=== PATIENT | male | born 1955 | race Caucasian/White ===

== ENCOUNTER → 2019-10-25 09:50 | Outpatient (BNVA) | payer BC, SELFPAY | PROVIDERS: Family Provider Family Medicine; PCP Family Medicine; Visit Provider Internal Medicine Cardiovascular Disease | DX: E78.2 Mixed hyperlipidemia (principal); I25.10 Atherosclerotic heart disease of native coronary artery without angina pectoris; Z95.0 Presence of cardiac pacemaker; I10 Essential (primary) hypertension | CPT/HCPCS: 80061 ==

== ENCOUNTER → 2019-10-27 08:28 | Outpatient (BNVA) | payer BC, SELFPAY | PROVIDERS: Family Provider Family Medicine; PCP Family Medicine; Visit Provider Urology | DX: N99.89 Other postprocedural complications and disorders of genitourinary system (principal); R97.20 Elevated prostate specific antigen [PSA]; N40.0 Benign prostatic hyperplasia without lower urinary tract symptoms | CPT/HCPCS: 36415; 81001 ==

== ENCOUNTER 2019-12-21 08:12 | Outpatient (CLI) | payer BC, SELFPAY ==
--- NOTE | 2019-12-21 08:37 | XR_ITS ---
WS: [id number] LEFT KNEE: 2 VIEW(S) TECHNIQUE: AP and lateral. HISTORY: LEFT KNEE PAIN COMPARISON: None available. No fracture or dislocation. Moderate narrowing medial compartment. Mild narrowing of patellofemoral joint space. There are small osteophytes. No joint effusion. No soft tissue abnormality. XR/XR knee LT 1-2V [id number] IMPRESSION: Moderate medial compartment osteoarthritis.
== END 2019-12-21 08:13 | disposition home or self-care (01) ==
LOC: RADWPI 08:17
PROVIDERS: Family Provider Family Medicine; PCP Family Medicine; Visit Provider Nurse Practitioner Family
DX: M17.12 Unilateral primary osteoarthritis, left knee (principal); M23.92 Unspecified internal derangement of left knee
CPT/HCPCS: 73560

== ENCOUNTER → 2020-02-09 14:51 | Outpatient (BNVA) | payer BC, SELFPAY | PROVIDERS: Family Provider Family Medicine; PCP Family Medicine; Visit Provider Urology | DX: R97.20 Elevated prostate specific antigen [PSA] (principal); N40.0 Benign prostatic hyperplasia without lower urinary tract symptoms | CPT/HCPCS: 81001; 84153 ==

== ENCOUNTER → 2020-06-27 08:20 | Outpatient (BNVA) | payer MEDICARE, SELFPAY | PROVIDERS: Family Provider Family Medicine; PCP Family Medicine; Visit Provider Urology | DX: R97.20 Elevated prostate specific antigen [PSA] (principal) | CPT/HCPCS: 81001; 84153 ==

== ENCOUNTER → 2020-10-31 13:31 | Outpatient (BNVA) | payer MEDICARE, SELFPAY | PROVIDERS: Family Provider Family Medicine; PCP Family Medicine; Visit Provider Urology | DX: R97.20 Elevated prostate specific antigen [PSA] (principal) | CPT/HCPCS: 81003; 84153 ==

== ENCOUNTER 2021-04-03 06:00 | Outpatient (RCR) | payer MEDICARE, SELFPAY | END 2021-04-18 23:59 | disposition home or self-care (01) | LOC: MPT 06:00 | PROVIDERS: PCP Family Medicine; Referring Provider Student in an Organized Health Care Education/Training Program; Visit Provider Student in an Organized Health Care Education/Training Program | DX: M17.12 Unilateral primary osteoarthritis, left knee (principal) | CPT/HCPCS: 97110; 97140; 97161 ==

== ENCOUNTER 2021-04-19 06:00 | Outpatient (RCR) | payer MEDICARE, SELFPAY | END 2021-05-19 23:59 | disposition home or self-care (01) | LOC: MPT 06:00 | PROVIDERS: PCP Family Medicine; Referring Provider Student in an Organized Health Care Education/Training Program; Visit Provider Student in an Organized Health Care Education/Training Program | DX: M17.12 Unilateral primary osteoarthritis, left knee (principal) | CPT/HCPCS: 97110; 97140 ==

== ENCOUNTER → 2021-05-02 17:08 | Outpatient (BNVA) | payer MEDICARE, SELFPAY | PROVIDERS: PCP Family Medicine; Visit Provider Urology | DX: R97.20 Elevated prostate specific antigen [PSA] (principal); R31.0 Gross hematuria | CPT/HCPCS: 81003; 84153; 87086; 88112 ==

== ENCOUNTER 2021-05-20 06:00 | Outpatient (RCR) | payer MEDICARE, SELFPAY | END 2021-06-19 23:59 | disposition home or self-care (01) | LOC: MPT 06:00 | PROVIDERS: PCP Family Medicine; Referring Provider Student in an Organized Health Care Education/Training Program; Visit Provider Student in an Organized Health Care Education/Training Program | DX: M17.12 Unilateral primary osteoarthritis, left knee (principal) | CPT/HCPCS: 97110; 97140 ==

== ENCOUNTER 2021-05-30 07:21 | Outpatient (CLI) | payer MEDICARE, SELFPAY ==
[2021-05-30 08:17] LABS: Blood Urea Nitrogen 23 mg/dL (8-23); Glomerular Filtration Rate 55.4 mL/min (90-130)
--- NOTE | 2021-05-30 08:30 | CT_ITS ---
WS: [id number] CT ABDOMEN PELVIS TECHNIQUE: Noncontrast CT of the abdomen and contrast-enhanced CT of the abdomen and pelvis with dorcas nal and sagittal reformatted images. CLINICAL INFORMATION: GROSS HEMATURIA COMPARISON: None. DLP: 3956.[address] scans at [facility] use at least one of these dose optimization techniques: automat ed exposure control; mA and/or kV adjustment per patient size (includes targeted exams where dose is matched to clinical indication); or iterative reconstruction. FINDINGS: No hydronephrosis in either kidney. No obstructing renal or ureteral calculi. A few tiny nonobstructi ng calyceal tip calculi. Right renal cyst measuring 4.7 x 3.9 CM. Tiny left renal cyst. Bladder is de compressed with diffuse wall thickening. Marked enlargement of prostate with heterogeneous enhancemen t measuring 6.1 x 6.1 CM. Diffuse thickening of the seminal vesicles. Normal renal parenchymal enhanc ement with normal excretion. Mild diffuse fatty infiltration of the liver. Normal spleen. Normal GE junction. Fatty atrophy of the pancreas. Adrenal glands are normal. Normal gallbladder. Normal portal vein and splenic vein. Lung b ases are well aerated. Cardiomegaly. Aortic calcification. Normal caliber abdominal aorta. Normal sigmoid colon. No evidence of small or large bowel obstruction. Normal appendix in the right l ower quadrant. No abdominal or pelvic lymphadenopathy. No inguinal lymphadenopathy. Incidental fat-co ntaining hernia. CT/CT abdomen pelvis wo/w [id number] IMPRESSION: 1. Marked enlargement of the prostate with evidence of bladder outlet obstruct ion. Diffuse thickening of the seminal vesicles. Heterogeneous nodular prostate measures 6.0 x 6.0 CCM. Recommend correlation PSA. 2. No obstructing renal or ureteral calculi. Mild bilateral renal cortical at rophy. 3. Right renal cyst measuring 4.7 x 3.9 CM. 4. No abdominal or pelvic lymphadenopathy. No inguinal lymphadenopathy. 5. Mild diffuse fatty infiltration of the liver. 6. No other significant findings.
[2021-05-30] MEDS: iodixanol 320 mg/mL 100mL Btl IV (08:41)
== END 2021-05-30 07:22 | disposition home or self-care (01) ==
PROVIDERS: PCP Nurse Practitioner; Visit Provider Urology
DX: R31.0 Gross hematuria (principal); K76.0 Fatty (change of) liver, not elsewhere classified; Q61.01 Congenital single renal cyst; N40.0 Benign prostatic hyperplasia without lower urinary tract symptoms
CPT/HCPCS: 36415; 74178; 81003; 82565; 84520

== ENCOUNTER → 2021-07-02 11:29 | Outpatient (BNVA) | payer MEDICARE, SELFPAY | PROVIDERS: PCP Nurse Practitioner; Visit Provider Internal Medicine Cardiovascular Disease | DX: Z01.818 Encounter for other preprocedural examination (principal); I25.10 Atherosclerotic heart disease of native coronary artery without angina pectoris; E78.5 Hyperlipidemia, unspecified; E78.2 Mixed hyperlipidemia; Z45.010 Encounter for checking and testing of cardiac pacemaker pulse generator [battery]; Z20.822 Contact with and (suspected) exposure to COVID-19; Z79.899 Other long term (current) drug therapy | CPT/HCPCS: 80048; 80061; 85025; 85610; 86850; 86900; 87635 ==

== ENCOUNTER 2021-07-09 05:53 | Day surgery (SDC) | payer MEDICARE, SELFPAY ==
[2021-07-09] VITALS (7 sets, daily range): BP systolic 120–145; BP diastolic 75–94; PULSE 60–66; RESP 14–18; TEMP 36.5–37.1; O2SAT 92–97; BMI 33.5
--- NOTE | 2021-07-09 07:08 | W.PM.OPSUD ---
Surgery/Procedure H&P Update DATE OF PROCEDURE: July 09, 2021 DATE H&P PERFORMED: 07/02/21 H&P UPDATE INFORMATION: I have reviewed H&P completed within last 30 days, I have examined patient prior to procedure and No changes to prior documentation PREOP DIAGNOSIS: Pacemaker, elective replacement indication PRIMARY INDICATION FOR PROCEDURE: Same as above PLANNED PROCEDURE: Operation Date: 07/09/21 07:00 Proposed Procedures p Pacemaker Generator Change(Not Applicable) - Eloisa You MD PATIENT REASSESSED PRIOR TO SEDATION, WITH NO CHANGE NOTED: Yes PHYSICAL EXAM: alert, clear to auscultation bilaterally, regular rate & rhythm and operative site marked OTHER PERTINENT EXAM FINDINGS: Normal heart sounds. Breath sounds are heard bilaterally. No rales or rhonchi. No peripheral edema AIRWAY EVAL/ANESTHESIA PLAN: normal airway, see other exam findings, ASA II, Monitored Anesthesia, Local Anesthesia, Risks, benefits & alternatives of sedation and/or procedure discussed and Patient agrees to continue as planned
--- NOTE | 2021-07-09 08:13 | PM.OP ---
Operative Report Date of procedure: July 09, 2021 Pre-op Diagnosis: Pacemaker, elective replacement indication Procedure: PROCEDURE: PACEMAKER REVISION PREOPERATIVE DIAGNOSIS: Pacemaker elective replacement indication. POSTOPERATIVE DIAGNOSIS: Pacemaker elective replacement indication. ESTIMATED BLOOD LOSS: Around 5 milliliters. COMPLICATIONS: None. BRIEF HISTORY: The patient is 66-year-old white male/female who had a permanent pacemaker implantation for symptomatic bradycardia. The patient was found to have elective replacement indication, during routine office followup evaluation. For further management of patient's condition for the symptomatic bradycardia, the patient required a pacemaker revision. The procedure was explained to the patient and his in detail with the risks and benefits. The risks of bleeding, hematoma, vascular injury, infection and other concomitant complications were explained in detail, which the patient understood well and consented to proceed. PROCEDURES PERFORMED: 1. Explantation of the old pacemaker generator. 2. Implantation of the new generator. The patient brought to the Cardiac Bulb Grader. The left side of the neck and the subclavian area were cleaned and draped in a sterile fashion. 1% Xylocaine was used for local anesthetic agent. A 2 inch long incision was made just below the previous pacemaker scar. By sharp and blunt dissection, the pacemaker pocket was accessed. The old generator was delivered from the pocket. The generator was detached from the leads. The new Medtronic generator was attached to the lead. . The pacemaker pocket was copiously irrigated with vancomycin solution. Complete hemostasis was achieved. The leads were positioned behind the generator and the generator was placed inside an antibiotic sleeve . Sponge counts were confirmed. The pacemaker pocket was closed in layers. Skin was approximated using 4-0 Vicryl. EXPLANTED DEVICE: Pacemaker Generator: Brand: Unype. Model number: [id number]. Serial number: [id number]. Date of implant: 08/09/2009 IMPLANTED DEVICES: Ventricular Lead: Date of implantation: 08/09/2009 Model number:[id number] Serial number: [id number] Make: Medtronic. Atrial lead Date of Implantation:08/09/2009 Modelnumber:[id number] Serial number:[id number] Make :Medtronic Implanted Generator: Date of implantation : 07/09/2021 Brand: Amy XT DR LESLIE Robin Model number: [id number] Serial number: [id number] Make: Medtronic TYRX- antibiotic sleeve REF [facility] [address] LOT# [id number] Stimulation Threshold: The ventricular sensing was 10.0 millivolts. Lead impedance was 513 Ohms and the pacing threshold was 0.75 volts at 0.4 milliseconds. The atrial lead sensing was 3.6 mV with a lead impedance of 475 ohms and a pacing threshold of 0.5 V at 0.4 ms. The pacemaker was set for AAIR/DDDR mode with an upper rate of 130 and a lower rate of 60. A pressure dressing was applied over the pacemaker site. The patient was transferred back to medical floor in stable condition. Sponge counts were correct.
[2021-07-09] MEDS: sodium chloride 0.9% 1,000 ML 75 ML IV ×2 (09:00→20:04)
[2021-07-10 04:10] VITALS: BP 126/78; PULSE 62; RESP 16; TEMP 36.8; O2SAT 96
[2021-07-10] MEDS: multivitamin therapeutic Tablet 1 TAB PO (06:11)
[2021-07-10 08:00] VITALS: BP 134/72; PULSE 66; RESP 18; TEMP 37; O2SAT 92
[2021-07-10] MEDS: omega-3 fatty acids 1,000 mg Capsule 1000 MG PO (08:23)
[2021-07-10] MEDS: atorvastatin 40 mg Tablet 80 MG PO (08:23)
[2021-07-10] MEDS: ezetimibe 10 mg Tablet PO (08:23)
[2021-07-10] MEDS: lisinopril 20 mg Tablet 40 MG PO (08:23)
[2021-07-10] MEDS: amlodipine 5 mg Tablet PO (08:23)
[2021-07-10] MEDS: aspirin 325 mg Tablet PO (08:23)
--- NOTE | 2021-07-10 11:34 | PC.NURSE ---
Discharge Note Patient discharged to home via private vehicle accompanied by . Discharge instructions reviewed with patient and/or outside industrial sales representative. Mobile pharmacy medications and/or prescriptions provided. Belongings/home medications returned.
[2021-07-10 11:35] VITALS: BP 134/72; PULSE 66; RESP 18; TEMP 37; O2SAT 92
== END 2021-07-10 11:35 | disposition home or self-care (01) ==
LOC: CCL 06:53 → MEDSURG 08:53
PROVIDERS: PCP Nurse Practitioner; Visit Provider Internal Medicine Cardiovascular Disease
DX: Z45.010 Encounter for checking and testing of cardiac pacemaker pulse generator [battery] (principal); I25.10 Atherosclerotic heart disease of native coronary artery without angina pectoris; I10 Essential (primary) hypertension; E78.2 Mixed hyperlipidemia; M13.862 Other specified arthritis, left knee; Z82.49 Family history of ischemic heart disease and other diseases of the circulatory system
CPT/HCPCS: 33213; 36415; 97165; A4565; C1769; C1786; J0690; J2250; J3010; J7030; J7050

== ENCOUNTER 2021-10-09 07:20 | Outpatient (CLI) | payer MEDICARE, SELFPAY ==
[2021-10-09 07:26] VITALS: BMI 33.4
--- NOTE | 2021-10-09 07:26 | ECG_ITS ---
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 Interpretive Statements NAME OF STUDY: LEXISCAN SESTAMIBI STRESS TEST INDICATION: SOB PROCEDURE: At the baseline, the EKG revealed sinus rhythm with a poor R wave progression. Nonspecific T wave changes. The baseline blood pressure was 118/76 mm Hg with a heart rate of 61 beats/min. Lexiscan was infused over a period of 20 seconds. A total of 0.4 milligrams of Lexiscan was infused. The stress phase was continued for a total of 5 minutes. Heart rate at the end of the stress phase was 76 with a blood pressure 121/75. The EKG at the peak infusion revealed no significant changes. Sestamibi was injected 20 seconds after the Lexiscan infusion. Blood pressure at the end of the recovery phase was 116/71 with a heart rate of 69 per minute. CONCLUSION: 1. No significant EKG changes with the LexiScan infusion 2. No LexiScan induced chest pain or cardiac arrhythmia 3. Normal blood pressure and heart rate response 4. Sestamibi/sestamibi perfusion scan pending; see separate report. Electronically Signed On 10-14-2021 19:23:24 SUPPRESSION CREW LEADER by Eloisa You M.D. [id number]
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
[2021-10-09] MEDS: regadenoson 0.4 Mg/5 ml Syringe IVP (09:45)
[2021-10-09 09:50] VITALS: BP 116/71; PULSE 68
== END 2021-10-09 07:21 | disposition home or self-care (01) ==
LOC: CDL 07:23
PROVIDERS: PCP Nurse Practitioner; Visit Provider Internal Medicine Cardiovascular Disease
DX: R06.02 Shortness of breath (principal)
CPT/HCPCS: 78452; 93017; A9500; J2785

== ENCOUNTER → 2021-11-07 09:45 | Outpatient (BNVA) | payer MEDICARE, SELFPAY | PROVIDERS: PCP Nurse Practitioner; Visit Provider Internal Medicine Cardiovascular Disease | DX: I25.118 Atherosclerotic heart disease of native coronary artery with other forms of angina pectoris (principal); Z20.822 Contact with and (suspected) exposure to COVID-19 | CPT/HCPCS: 80048; 85025; 85610; 87635 ==

== ENCOUNTER 2021-11-12 06:02 | Outpatient (CLI) | payer MEDICARE, SELFPAY ==
[2021-11-12] VITALS (24 sets, daily range): BP systolic 100–171; BP diastolic 66–104; PULSE 60–85; RESP 12–22; TEMP 36.5; O2SAT 92–97; BMI 33.7
--- NOTE | 2021-11-12 | XACV_ITS ---
Gender: Male : 1955 Exam Priority: Routine Diagnostic Cath Status: Elective Diagnostic Findings * Coronary angiography shows right dominance. * The left main is a medium caliber short vessel with no significant stenotic lesions. * Moderate to heavy Diffuse calcification was noted in the proximal and mid LAD. Mild diffuse calcification was noted in the proximal circumflex artery. * T * he left artery descending artery is a medium caliber vessel which wrap around the LV apex minimally. The mid LAD was found to have a long stented segment which was found to have mild diffuse in-stent narrowing. The septal perforators coming out of the stented area were found to have moderate ostial narrowing. The distal LAD was found to have a long segment of 20 to 30% narrowing proximally. No other significant stenotic lesions were noted. * The left circumflex artery is a medium caliber vessel which was found to have mild diffuse intimal irregularities proximally. It gives off a relatively large first obtuse marginal branch. It was found to have a high-grade segmental stenosis of around 90% proximally. Right after the origin of the first obtuse marginal artery, the circumflex proper in the AV groove was found to have an ostial narrowing of around 70%. Bwpy-fr-kwsbs collaterals were found to be filling up the PDA and PLV branches of the right coronary artery. * The right coronary artery is a medium caliber vessel which was found to have 50 to 70% tubular narrowing right after the sinus juliano branch proximally. The PDA branch was found to have high-grade around 95% lesion proximally at the bifurcation. Just before the stented area of the mid PDA, there was another 70 to 80% narrowing. Distal to the stented segment, the artery appeared to be subtotally occluded. The PLV branch of the right coronary artery appears to be totally occluded near the ostium. Interventional Findings * Reason for intervention PCI: Abnormal stress test inferior inferolateral wall ischemia. * RCA has multiple tandem stenosis with diffuse disease, there is a iabn-fc-iozmq collaterals filling the distal RCA * , * therefore we decided to proceed with intervention of proximal obtuse marginal 1. Excellent angiographic result with YAYA-3 flow was confirmed * . * . Conclusions 1. This is a 66-year-old white male with a history of coronary disease and previous PCI, presenting with increasing episodes of chest pain/fatigue/dyspnea on exertion. He had a myocardial perfusion imaging which revealed moderate area of fixed and reversible defects in the distribution of the right coronary artery and circumflex artery. In view of his ongoing symptoms, in order to further evaluate his coronary status, a cardiac catheterization was recommended. Patient underwent left heart catheterization with left and right coronary angiogram today. The findings are as follows. 2. No significant disease in the left main. Patent stented segment of the mid LAD. Mild diffuse disease in the rest of the vessels. Moderate diffuse calcification was noted in the proximal and mid LAD. High-grade lesion of the first obtuse marginal branch of the circumflex artery. Moderately severe disease in the ostium of the mid circumflex. Moderate diffuse disease in the proximal right coronary artery. High-grade multiple lesions in the PDA, including its ostium. There was total occlusion of the PLV branch of the right coronary artery with good hphk-jh-zzoig collaterals. Grade 2 collaterals were also noted filling up the distal PDA from the left coronary injection. LVEDP of 30 mmHg. LV gram was not performed because of the concern of the dye overload. 3. I have reviewed and discussed the cardiac catheterization data habits of Dr. Rainey. It was thought to be appropriate to consider PCI of the circumflex and the RCA lesions. Dr. Rainey took over further management of this patient at this point. Recommendations * Continue current medical management and risk factor modification. Interventional RX Recommendation: PCI w/o planned CABG Diagnostic RX Recommendation: PCI w/o planned CABG LV EDP: 30 mmHg Left Ventriculography Findings: * The LV gram was not performed because of the concern of the dye overload. The LVEDP was 30 mmHg. I, the attending physician, have reviewed and verified all procedure medications. Yes, all medications given per verbal order Report Signatures Interventional Workflow Finalized by Keerthi Rainey MD on 11/27/2021 07:20 PM Diagnostic Workflow Finalized by Dr Eloisa You MD [facility] on 11/12/2021 11:05 PM
[2021-11-12] MEDS: diphenhydrAMINE 50 mg Capsule PO (06:15)
--- NOTE | 2021-11-12 07:15 | W.PM.OPSUD ---
Surgery/Procedure H&P Update DATE OF PROCEDURE: November 12, 2021 DATE H&P PERFORMED: 10/16/21 H&P UPDATE INFORMATION: I have reviewed H&P completed within last 30 days, I have examined patient prior to procedure and No changes to prior documentation PREOP DIAGNOSIS: ASHD PRIMARY INDICATION FOR PROCEDURE: cp/ Abnormal stress test PLANNED PROCEDURE: Operation Date: 11/12/21 07:00 Proposed Procedures p Cardiac Catheterization(Left) - Eloisa You MD PATIENT REASSESSED PRIOR TO SEDATION, WITH NO CHANGE NOTED: Yes PHYSICAL EXAM: alert, oriented x 3, clear to auscultation bilaterally and regular rate & rhythm AIRWAY EVAL/ANESTHESIA PLAN: normal airway, see other exam findings, ASA III, Monitored Anesthesia, Local Anesthesia, Risks, benefits & alternatives of sedation and/or procedure discussed and Patient agrees to continue as planned
[2021-11-12] MEDS: clopidogrel 300 mg Tablet 600 MG PO (09:45)
--- NOTE | 2021-11-12 09:54 | SUR.PHASEII ---
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 TR band in place. Small hematoma noted proximal to the band-expressed via massage and then 2nd band applied. Radial waveform noted via o2 sensor. Dr Rainey made aware of the hematoma and ther is no change in plan of care at this point.
--- NOTE | 2021-11-12 09:59 | SUR.PHASEII ---
Post OP fluid rate is set per MD at 150 ml/hr until discharge today. Noted and infusing as ordered.
--- NOTE | 2021-11-12 11:45 | SUR.PHASEII ---
Aggrastat D/C PER ORDERS.
--- NOTE | 2021-11-12 11:51 | SUR.PHASEII ---
TR BAND CHECK 2ND BAND REMOVED TO CHECK STATUS OF SMALL HEMATOMA. Site noted to be taught and swollen from band application. Gentle massage to the radial site proxima to the access point done. Area massaged until taughtness gone. Site is now soft to the touch. No visible sign of active bleeding present now. 2nd Band reapplied and Dr rasheed notified of the change. He came to assess the site and gave no new orders at this time.
--- NOTE | 2021-11-12 12:45 | SUR.PHASEII ---
2nd band removed incrementally at 1215. at 1245 the primary tr band deflation began. No change to right arm and hematoma. Will continue to monitor.
--- NOTE | 2021-11-12 14:03 | SUR.PHASEII ---
TR BAND deflated and removed. Clear bioclusive applied. Dr rasheed aware. Will come assess in a few moments.
== END 2021-11-12 15:10 | disposition home or self-care (01) ==
PROVIDERS: Internal Medicine Cardiovascular Disease; PCP Nurse Practitioner; Visit Provider Internal Medicine Cardiovascular Disease
DX: I25.118 Atherosclerotic heart disease of native coronary artery with other forms of angina pectoris (principal); R94.39 Abnormal result of other cardiovascular function study; Z95.0 Presence of cardiac pacemaker; I10 Essential (primary) hypertension; E78.2 Mixed hyperlipidemia; M17.12 Unilateral primary osteoarthritis, left knee; Z79.82 Long term (current) use of aspirin; Z82.49 Family history of ischemic heart disease and other diseases of the circulatory system; Z83.3 Family history of diabetes mellitus
CPT/HCPCS: 36415; 85347; 93452; 93458; C1725; C1769; C1874; C1887; C1894; C9600; J1644; J2250; J3010; J3490; J7030; Q0163; Q9967

== ENCOUNTER 2021-11-29 08:59 | Outpatient (CLI) | payer MEDICARE, SELFPAY ==
--- NOTE | 2021-11-29 09:03 | XR_ITS ---
WS: [id number] XR KUB [id number] REASON FOR EXAM: stones FINDINGS: 3 mm calculus overlying the lower pole of the left kidney. No other urinary tract calculi are identified. No other significant abdominal or pelvic abnormality. XR/XR KUB [id number] IMPRESSION: Left renal calculus.
== END 2021-11-29 09:00 | disposition home or self-care (01) ==
LOC: RAD 09:03
PROVIDERS: PCP Nurse Practitioner; Visit Provider Urology
DX: N20.0 Calculus of kidney (principal); I25.118 Atherosclerotic heart disease of native coronary artery with other forms of angina pectoris
CPT/HCPCS: 74018; 80048; 81003; 84153

== ENCOUNTER → 2022-01-15 10:33 | Outpatient (BNVA) | payer MEDICARE, SELFPAY | PROVIDERS: PCP Nurse Practitioner; Visit Provider Internal Medicine Cardiovascular Disease | DX: I25.118 Atherosclerotic heart disease of native coronary artery with other forms of angina pectoris (principal); E78.2 Mixed hyperlipidemia; Z95.0 Presence of cardiac pacemaker | CPT/HCPCS: 99214 ==

== ENCOUNTER 2022-01-22 11:37 | Outpatient (CLI) | payer MEDICARE, SELFPAY ==
[2022-01-22 13:08] LABS: Cholesterol 132 mg/dL (0-200); HDL Cholesterol 44 mg/dL (60-100); LDL Cholesterol Calculated 59 mg/dL (50-129); LDL HDL Ratio 1.34 RATIO (0.00-3.22); Triglycerides 146 mg/dL (0-150)
== END 2022-01-22 11:38 | disposition home or self-care (01) ==
PROVIDERS: PCP Nurse Practitioner; Visit Provider Internal Medicine Cardiovascular Disease
DX: E78.5 Hyperlipidemia, unspecified (principal)
CPT/HCPCS: 80061

== ENCOUNTER 2022-04-11 06:00 | Outpatient (RCR) | payer MEDICARE, SELFPAY | END 2022-04-18 23:59 | disposition home or self-care (01) | LOC: MPT 06:00 | PROVIDERS: PCP Nurse Practitioner; Referring Provider Student in an Organized Health Care Education/Training Program; Visit Provider Student in an Organized Health Care Education/Training Program | DX: M17.12 Unilateral primary osteoarthritis, left knee (principal) | CPT/HCPCS: 97110; 97140; 97161 ==

== ENCOUNTER 2022-04-19 06:00 | Outpatient (RCR) | payer MEDICARE, SELFPAY | END 2022-05-19 23:59 | disposition home or self-care (01) | LOC: MPT 06:00 | PROVIDERS: PCP Nurse Practitioner; Referring Provider Student in an Organized Health Care Education/Training Program; Visit Provider Student in an Organized Health Care Education/Training Program | DX: Z47.1 Aftercare following joint replacement surgery (principal); Z96.652 Presence of left artificial knee joint | CPT/HCPCS: 97110; 97140 ==

== ENCOUNTER 2022-05-20 06:00 | Outpatient (RCR) | payer MEDICARE, SELFPAY | END 2022-06-19 23:59 | disposition home or self-care (01) | LOC: MPT 06:00 | PROVIDERS: PCP Nurse Practitioner; Visit Provider Student in an Organized Health Care Education/Training Program | DX: M17.12 Unilateral primary osteoarthritis, left knee (principal) | CPT/HCPCS: 97110; 97116; 97140 ==

== ENCOUNTER → 2022-06-04 09:56 | Outpatient (BNVA) | payer MEDICARE, SELFPAY | PROVIDERS: PCP Nurse Practitioner; Visit Provider Urology | DX: R97.20 Elevated prostate specific antigen [PSA] (principal); N20.0 Calculus of kidney; R31.0 Gross hematuria | CPT/HCPCS: 36415; 81003; 84153; 99213 ==

== ENCOUNTER 2022-06-20 06:00 | Outpatient (RCR) | payer MEDICARE, SELFPAY | END 2022-07-19 23:59 | disposition home or self-care (01) | LOC: MPT 06:00 | PROVIDERS: PCP Nurse Practitioner; Visit Provider Student in an Organized Health Care Education/Training Program | DX: Z47.89 Encounter for other orthopedic aftercare (principal); M25.562 Pain in left knee | CPT/HCPCS: 97110 ==

== ENCOUNTER → 2022-07-16 10:25 | Outpatient (BNVA) | payer MEDICARE, SELFPAY | PROVIDERS: PCP Nurse Practitioner; Visit Provider Internal Medicine Cardiovascular Disease | DX: I25.10 Atherosclerotic heart disease of native coronary artery without angina pectoris (principal); Z95.0 Presence of cardiac pacemaker; I10 Essential (primary) hypertension; E78.2 Mixed hyperlipidemia | CPT/HCPCS: 99214 ==

== ENCOUNTER 2022-07-31 01:31 | Emergency (ER) | payer MEDICARE, SELFPAY ==
--- NOTE | 2022-07-31 01:34 | CTR_ITS ---
PROCEDURE INFORMATION: Exam: CT Abdomen And Pelvis Without Contrast Exam date and time: 07/31/2022 2:06 AM Age: 67 years old Clinical indication: Abdominal pain; Right; Prior surgery; Surgery type: Pacemaker; Patient HX: C/O RT flank pain with dysuria. TECHNIQUE: Imaging protocol: Computed tomography of the abdomen and pelvis without contrast. Radiation optimization: All CT scans at this facility use at least one of these dose optimization techniques: automated exposure control; mA and/or kV adjustment per patient size (includes targeted exams where dose is matched to clinical indication); or iterative reconstruction. COMPARISON: CT abdomen pelvis wo/w [id number] 05/30/2021 8:36 AM RADIATION DOSE METRICS: Total DLP (mGy-cm): 858.13 FINDINGS: Lungs: The visualized portions of the lung bases are normal. The heart size is normal. Pacemaker leads are seen in the right side of the heart. Mild coronary arterial atherosclerotic vascular calcifications. Liver: Appears unremarkable on the non-contrast CT. Gallbladder and bile ducts: No calcified stones. No ductal dilation. Pancreas: Appears unremarkable on the non-contrast CT. No ductal dilation. Spleen: Appears unremarkable on the non-contrast CT. No splenomegaly. Adrenal glands: Normal. No mass. Kidneys and ureters: Right kidney mid zone anterior simple 4.9 x 3.6 cm cyst is seen. Left kidney lower pole 4 x 4 mm calculus is seen. No left hydronephrosis, ureterectasis or ureteral calculi. Mild right hydronephrosis and ureterectasis with a right ureterovesicular junction 2 x 3 mm calculus (series 3, image 192 and series 5, image 101) at the level of the hip joints. Stomach and bowel: The noncontrast opacified stomach appears unremarkable. The noncontrast opacified small bowel loops appear unremarkable. The noncontrast opacified colonic loops show minimal distal descending and mild sigmoid colonic diverticulosis, without CT evidence of diverticulitis. The lack of orally administered contrast material limits assessment. Appendix: No CT evidence of appendicitis. Intraperitoneal space: No free air. No significant fluid collection. Vasculature: No abdominal aortic aneurysm. Mild atherosclerotic vascular calcifications. Lymph nodes: No enlarged lymph nodes. Urinary bladder: The bladder is not well distended with relative mild bladder wall prominence/thickening. Similar findings were seen on the prior CT. If there is clinical concern for cystitis, recommend correlation with urinalysis findings. Reproductive: Increased moderate to severely enlarged prostate is seen. Mildly prominent seminal vesicles are seen. Recommend correlation with clinical exam findings and PSA level assessment. Bones/joints: No acute osseous abnormalities noted. Severe degenerative disc disease changes with vacuum phenomenon are seen at the L3-L4 and L5-S1 levels. Soft tissues: Small umbilical hernia is seen, containing peritoneal fat. Tiny left inguinal hernia is seen, containing peritoneal fat. CT/CT kidney stone [id number] IMPRESSION: 1. Mild right hydronephrosis and ureterectasis with a right ureterovesicular junction 2 x 3 mm calculus (series 3, image 192 and series 5, image 101) at the level of the hip joints. 2. Left kidney lower pole 4 x 4 mm calculus. No left hydronephrosis or ureterectasis. 3. Increased moderate to severely enlarged prostate. Recommend correlation with clinical exam findings and PSA level assessment. COMMENTS: Consistent with the [place] [employer]'s Incidental Findings Committee white paper (J Am Zoë Radiol 2018): Any incidental renal lesion less than 1 cm or classified as too small to characterize, or any incidental cystic renal lesion characterized as simple-appearing, is likely benign. No follow-up imaging is recommended for these lesions per consensus recommendations based on imaging criteria.
[2022-07-31 01:48] VITALS: BP 158/87; PULSE 68; RESP 20; TEMP 36.7; O2SAT 97; BMI 33.4
--- NOTE | 2022-07-31 02:00 | W.ED.MALEGU ---
HPI - Male Genitourinary General: Chief complaint: Urogenital-Male Stated complaint: possible kidney stone Time Seen by Provider: 07/31/22 01:55 History of Present Illness: 67-year-old male patient comes in today with complaints of right flank pain radiating into the groin. Patient has a history of renal stones. Patient reports symptoms started this evening with pain and nausea. Patient has a history of coronary artery disease, elevated PSA, BPH, and mixed hyperlipidemia. Patient appears nontoxic. Patient appears in mild to moderate pain. Associated symptoms: Reports nausea Review of Systems General: Reports: 10 or more systems reviewed and unremarkable except in HPI and below Card: Denies: chest pain Resp: Denies: dyspnea GI: Reports: nausea : Reports: flank pain PFSH ED PFSH: Medical History Artificial cardiac pacemaker Bradycardia Coronary artery disease The most recent cardiac catheterization was in 2008. He was found to have a patent stent in the LAD with minimal in-stent stenosis. The stent in the PDA also was found to be patent. Moderate disease is noted in the bifurcation of the distal RCA and around the origin of the first obtuse marginal artery. The LV ejection fraction was 60%. The most recent myocardial bridge imaging was in 2011 Elevated PSA Chronically elevated PSA with negative biopsy 2018 Range 4-10, benign feeling NATE Enlarged prostate History of skin cancer of unknown type Hypertension Lower urinary tract symptoms (LUTS) Mixed hyperlipidemia Surgical History History of knee replacement, total LEFT Status post coronary artery stent placement Status post placement of cardiac pacemaker Status post vasectomy Family History Father , AT AGE 89-HEART FAILURE CAD (coronary artery disease) Mother Heart failure Family/Other Diabetes Cancer Lung disease Stroke Other Hypertension Denies family history of Clotting disorder Dementia Chronic kidney disease (CKD) Suicide Anesthesia complication Bleeding disorder Social History Smoking and tobacco status: never smoked Alcohol intake: never Marital status: Current occupational status: retired History of recent travel: No Physical Exam Const: COMMON NORMALS: alert HENMT: COMMON NORMALS: normocephalic HEAD & SCALP: normocephalic Neck/C-Spine: COMMON NORMALS: full ROM Resp: COMMON NORMALS: normal respiratory effort and clear to auscultation bilaterally AUSCULTATION: clear to auscultation bilaterally Cardio: COMMON NORMALS: regular rate and regular rhythm RATE: regular rate RHYTHM: regular rhythm GI: COMMON NORMALS: Soft to palpation PALPATION: Yes Soft to palpation : BLADDER/KIDNEY EXAM: Yes CVA tenderness on the right Back/Pelvis: GENERAL BACK: Yes CVA tenderness Extremity: COMMON NORMALS: no pedal edema Neuro: SENSORIUM/ORIENTATION: Yes alert Skin: COMMON NORMALS: turgor normal GENERAL SKIN EXAM: turgor normal Course Vital Signs: Vital signs: Vital Signs Temperature 98.0 F 07/31/22 01:48 Pulse Rate 60 07/31/22 03:42 Respiratory Rate 16 07/31/22 03:42 Blood Pressure 118/81 07/31/22 03:42 Pulse Oximetry 95 07/31/22 03:42 Oxygen Delivery Me thod 07/31/22 01:48 [facility] - Male Medical Decision Making 67-year-old male patient comes in today for complaints of right flank pain. Patient reports has had pain to his back on and off for about a month now. Tonight he started having significant flank pain radiating into his groin he believes he may be passing a stone. On exam patient has some right CVA tenderness. Abdomen is soft with some right lower quadrant abdominal tenderness. Vital signs are normal except for some elevation in blood pressure. Differential diagnosis includes but not limited to renal calculi, constipation, appendicitis, musculoskeletal back pain. CBC had a white count of 10,000, urinalysis was unremarkable, CT scan did note a 4 to 5 mm stone at the UVJ on the right side. Reviewed exam with patient with recommendations for treatment follow-up with urologist. Patient was given 1 dose of hydromorphone for pain and 4 mg of Zofran for nausea. Patient was written prescription for hydrocodone, ondansetron, and tamsulosin and knows to follow-up with urology. Case management was requested to assist with follow-up appointment. Lab Data : 07/31/22 02:03 07/31/22 02:03 Radiology Impressions Abdomen/Pelvis CT 07/31/22 01:34 IMPRESSION: 1. Mild right hydronephrosis and ureterectasis with a right ureterovesicular junction 2 x 3 mm calculus (series 3, image 192 and series 5, image 101) at the level of the hip joints. 2. Left kidney lower pole 4 x 4 mm calculus. No left hydronephrosis or ureterectasis. 3. Increased moderate to severely enlarged prostate. Recommend correlation with clinical exam findings and PSA level assessment. COMMENTS: Consistent with the [employer]'s Incidental Findings Committee white paper (J Am Zoë Radiol 2018): Any incidental renal lesion less than 1 cm or classified as too small to characterize, or any incidental cystic renal lesion characterized as simple-appearing, is likely benign. No follow-up imaging is recommended for these lesions per consensus recommendations based on imaging criteria. Laboratory Results WBC 10.2 10^3/uL (4.0-10.0) H 07/31/22 02:03 RBC 4.66 10^6/uL (4.1-5.3) 07/31/22 02:03 Hgb 13.8 g/dL (11.7-16.6) 07/31/22 02:03 Hct 40.8 % (42.0-52.0) L 07/31/22 02:03 MCV 87.6 fl (80-94) 07/31/22 02:03 MCH 29.6 pg (28.0-34.0) 07/31/22 02:03 MCHC 33.8 g/dL (30.0-36.0) 07/31/22 02:03 RDW 13.3 % (12.1-15.1) 07/31/22 02:03 Plt Count 249 10^3/cmm (130-400) 07/31/22 02:03 MPV 9.8 fL (7.4-10.4) 07/31/22 02:03 Neut % (Auto) 64.3 % 07/31/22 02:03 Lymph % (Auto) 24.8 % 07/31/22 02:03 [place] % (Auto) 7.6 % 07/31/22 02:03 Eos % (Auto) 2.2 % 07/31/22 02:03 Baso % (Auto) 0.6 % 07/31/22 02:03 Neut # (Auto) 6.54 10^3/uL (1.8-7.7) 07/31/22 02:03 Lymph # (Auto) 2.5 10^3/uL (0.8-4.8) 07/31/22 02:03 [place] # (Auto) 0.8 10^3/uL (0.2-0.9) 07/31/22 02:03 Eos # (Auto) 0.2 10^3/uL (0.0-0.8) 07/31/22 02:03 Baso # (Auto) 0.1 10^3/uL (0.0-0.1) 07/31/22 02:03 Nucleated RBC % (auto) 0 % 07/31/22 02:03 Nucleated RBCs # 0.0 /100WBC 07/31/22 02:03 Sodium 139 mmol/L (136-145) 07/31/22 02:03 Potassium 3.6 mmol/L (3.5-5.1) 07/31/22 02:03 Chloride 104 mmol/L (98-107) 07/31/22 02:03 Carbon Dioxide 19 mmol/L (22-29) L 07/31/22 02:03 Anion Gap 19.6 (5-19) H 07/31/22 02:03 BUN 31 mg/dL (8-23) H 07/31/22 02:03 Creatinine 1.4 mg/dL (0.7-1.2) H 07/31/22 02:03 GFR Calculation 50.5 mL/min (90-130) L 07/31/22 02:03 Glucose 152 mg/dL (65-115) H 07/31/22 02:03 Calculated Osmolality 298 mOsm/kg (285-295) H 07/31/22 02:03 Calcium 9.2 mg/dL (8.5-10.5) 07/31/22 02:03 Total Bilirubin 0.4 mg/dL (0.15-1.2) 07/31/22 02:03 AST 20 U/L (0-40) 07/31/22 02:03 ALT 22 U/L (0-41) 07/31/22 02:03 Alkaline Phosphatase 88 U/L (40-130) 07/31/22 02:03 Total Protein 7.2 g/dL (6.6-8.7) 07/31/22 02:03 Albumin 4.2 g/dL (3.5-5.2) 07/31/22 02:03 Globulin 3.0 g/dL (1.3-4.6) 07/31/22 02:03 Lipase 42 U/L (13-60) 07/31/22 02:03 Urine Color Yellow (Yellow) 07/31/22 02:18 Urine Appearance Clear (CLEAR) 07/31/22 02:18 Urine pH 5 (5-7) 07/31/22 02:18 Ur Specific [place] 1.025 (1.005-1.030) 07/31/22 02:18 Urine Protein Neg (Negative) 07/31/22 02:18 Urine Glucose (UA) Norm (Normal) 07/31/22 02:18 Urine Ketones Negative (Negative) 07/31/22 02:18 Urine Blood Neg (Negative) 07/31/22 02:18 Urine Nitrate Negative (Negative) 07/31/22 02:18 Urine Bilirubin Neg (Negative) 07/31/22 02:18 Urine Urobilinogen Norm mg/dL (Negative) 07/31/22 02:18 Ur Leukocyte Esterase Negative (Negative) 07/31/22 02:18 Discharge Plan Discharge Patient Disposition: Home Clinical Impression: Calculus of distal right ureter Condition: Stable Prescriptions: New tamsulosin 0.4 mg capsule 0.4 mg PO DAILY Qty: 14 0RF hydrocodone-acetaminophen 5-325 mg tablet 1 tab PO Q6H PRN (Reason: pain (scale score 7-10)) Qty: 14 0RF ondansetron 4 mg tablet,disintegrating 4 mg PO Q8H PRN (Reason: nausea and vomiting) Qty: 10 0RF No Action omega-3 acid ethyl esters 1 gram capsule 1 cap PO DAILY multivitamin Tablet 1 tab PO QAM aspirin 325 mg tablet 81 mg PO DAILY cetirizine [Zyrtec] 10 mg tablet 10 mg PO DAILY PRN (Reason: Allergy Symptoms) amlodipine 5 mg tablet 5 mg PO DAILY 90 Days Qty: 90 3RF lisinopril 40 mg tablet 40 mg PO DAILY Qty: 90 3RF ezetimibe 10 mg tablet 10 mg PO DAILY Qty: 90 3RF atorvastatin [Lipitor] 80 mg tablet 80 mg PO DAILY Qty: 90 3RF clopidogrel 75 mg tablet 75 mg PO DAILY Qty: 90 4RF Discharge Orders: Discharge ED (Routine); Ordered 07/31/22 Ordered By: Martir Toussaint Referrals: Zee Gregorio DIAMOND POWDER MIXER [Primary Care Provider] - Discharge Diet: Usual diet Patient Instructions: Kidney Stones (ED), Opioid Safety Activity Restrictions/Additional Instructions: Home and rest. Take medications as directed. He will use hydrocodone as needed for pain. Use ondansetron as needed for nausea and vomiting. Take tamsulosin daily to help relax the ureter so the stone will pass easily. Continue with routine medications. Case management will assist you with following up with Dr. Ibanez. Return to the ER for uncontrolled pain, inability to hold fluids down, or high fever. Coding Level of Care Code ED Supervisor Audit Clerks for Chg Fwd Exam Comprehensive
[2022-07-31 02:04] VITALS: RESP 18; O2SAT 98
[2022-07-31] MEDS: morphine 4 mg/mL SDV 1 mL IVP (02:04)
[2022-07-31] MEDS: ondansetron 2 mg/ML SDV 2 mL 4 MG IVP (02:04)
[2022-07-31 02:20] LABS: Basophils # 0.1 10^3/uL (0.0-0.1); Basophils % 0.6 %; Eosinophils # 0.2 10^3/uL (0.0-0.8); Eosinophils % 2.2 %; Hematocrit 40.8 % (42.0-52.0); Hemoglobin 13.8 g/dL (11.7-16.6); Lymphocytes # 2.5 10^3/uL (0.8-4.8); Lymphocytes % 24.8 %; Mean Corpuscular HGB Conc 33.8 g/dL (30.0-36.0); Mean Corpuscular Hemoglobin 29.6 pg (28.0-34.0); Mean Corpuscular Volume 87.6 fl (80-94); Mean Platelet Volume 9.8 fL (7.4-10.4); Monocytes # 0.8 10^3/uL (0.2-0.9); Monocytes % 7.6 %; Neutrophils # 6.54 10^3/uL (1.8-7.7); Neutrophils % 64.3 %; Nucleated Red Blood Cells % 0 %; Platelet Count 249 10^3/cmm (130-400); Red Blood Count 4.66 10^6/uL (4.1-5.3); Red Cell Distribution Width 13.3 % (12.1-15.1); White Blood Count 10.2 10^3/uL (4.0-10.0)
[2022-07-31 02:32] LABS: Add Urine Microscopic? NO; Charge for UA Resulting for Rev
[2022-07-31 02:36] VITALS: RESP 18
[2022-07-31] MEDS: HYDROmorphone 1 mg/mL INJ 1 mL IVP (02:36)
[2022-07-31 02:37] LABS: Bilirubin Urine Neg (Negative); Blood Urine Neg (Negative); Glucose Urine UA Norm (Normal); Ketones Urine Negative (Negative); Leukocyte Esterase Urine Negative (Negative); Nitrate Urine Negative (Negative); Protein Urine Neg (Negative); Specific Gravity, Urine 1.025 (1.005-1.030); Urine Appearance Clear (CLEAR); Urine Color Yellow (Yellow); Urobilinogen Urine Norm (Negative); pH Urine 5 (5-7)
[2022-07-31 02:41] LABS: Alanine Aminotransferase 22 U/L (0-41); Albumin Level 4.2 g/dL (3.5-5.2); Alkaline Phosphatase 88 U/L (40-130); Anion Gap 19.6 (5-19); Aspartate Amino Transferase 20 U/L (0-40); Blood Urea Nitrogen 31 mg/dL (8-23); Calcium 9.2 mg/dL (8.5-10.5); Carbon Dioxide 19 mmol/L (22-29); Chloride 104 mmol/L (98-107); Glomerular Filtration Rate 50.5 mL/min (90-130); Glucose 152 mg/dL (65-115); Lipase 42 U/L (13-60); Osmolality Calculated 298 mOsm/kg (285-295); Potassium 3.6 mmol/L (3.5-5.1); Sodium 139 mmol/L (136-145); Total Bilirubin 0.4 mg/dL (0.15-1.2); Total Protein 7.2 g/dL (6.6-8.7)
[2022-07-31 02:55] VITALS: BP 118/74; PULSE 66; RESP 16; O2SAT 97
[2022-07-31 03:42] VITALS: BP 118/81; PULSE 60; RESP 16; O2SAT 95
--- NOTE | 2022-07-31 15:05 | DCPLANNER ---
Addendum entered by Giselle Estrada 08/08/22 11:53: Patient had a follow up appointment scheduled for 08.06.[address] mcgee at urology - patient did attend appointment. Original Note: diabetes manager had message to schedule a follow up appointment for patient with urology. diabetes manager sent patients information to the front office staff at urology. Patients information will be printed and reviewed. Clinic will call patient with appointment information.
== END 2022-07-31 03:43 | disposition home or self-care (01) ==
PROVIDERS: Emergency Provider Nurse Practitioner Family; PCP Nurse Practitioner
DX: N20.1 Calculus of ureter (principal); Z87.442 Personal history of urinary calculi; Z79.02 Long term (current) use of antithrombotics/antiplatelets; Z79.82 Long term (current) use of aspirin; Z95.0 Presence of cardiac pacemaker; I25.10 Atherosclerotic heart disease of native coronary artery without angina pectoris; I10 Essential (primary) hypertension; E78.2 Mixed hyperlipidemia
CPT/HCPCS: 74176; 80053; 81003; 83690; 85025; 96374; 96375; 99285; J1170; J2270; J2405

== ENCOUNTER 2022-08-06 12:10 | Outpatient (CLI) | payer MEDICARE, SELFPAY ==
--- NOTE | 2022-08-06 12:21 | XR_ITS ---
WS: [id number] KUB, AP view, 08/06/2022 Clinical Data: STONES Comparison: KUB, 11/29/2021. Findings: The small calcification overlying the inferior pole of the left kidney is seen. No abnormal intraabdominal masses are seen. There is no dilatated small bowel or evidence of obstruct ion. There is a large amount of fecal material in the ascending and transverse colon. The fecal material o bscures detail over the right kidney. There is a levoscoliosis. XR/XR KUB [id number] Impression: Probable left renal stone.
== END 2022-08-06 12:11 | disposition home or self-care (01) ==
LOC: RAD 12:11
PROVIDERS: PCP Nurse Practitioner; Visit Provider Urology
DX: N20.0 Calculus of kidney (principal)
CPT/HCPCS: 74018; 81003; 99213

== ENCOUNTER 2022-12-05 09:03 | Outpatient (CLI) | payer MEDICARE, SELFPAY ==
--- NOTE | 2022-12-05 09:14 | XR_ITS ---
WS: [id number], AP view, 12/05/2022 Clinical Data: STONES Comparison: KUB, 08/06/2022 Findings: There is a questionable calculus overlying the inferior pole of the left kidney. No abnormal intraabdominal masses are seen. There is no dilatated small bowel or evidence of obstruct ion. There is a a large amount of fecal material throughout the colon. There is a levoscoliosis. XR/XR KUB [id number] Impression: Questionable left renal calculus.
== END 2022-12-05 09:04 | disposition home or self-care (01) ==
LOC: RAD 09:10
PROVIDERS: PCP Nurse Practitioner Family; Visit Provider Urology
DX: N20.0 Calculus of kidney (principal); R97.20 Elevated prostate specific antigen [PSA]
CPT/HCPCS: 74018; 81003; 99213

== ENCOUNTER → 2023-01-14 09:48 | Outpatient (BNVA) | payer MEDICARE, SELFPAY | PROVIDERS: PCP Nurse Practitioner Family; Visit Provider Internal Medicine Cardiovascular Disease | DX: I25.118 Atherosclerotic heart disease of native coronary artery with other forms of angina pectoris (principal); Z95.0 Presence of cardiac pacemaker; E78.2 Mixed hyperlipidemia; I10 Essential (primary) hypertension; Z79.82 Long term (current) use of aspirin | CPT/HCPCS: 99214 ==

== ENCOUNTER → 2023-02-18 09:13 | Outpatient (BNVA) | payer MEDICARE, SELFPAY | PROVIDERS: PCP Nurse Practitioner Family; Visit Provider Internal Medicine Cardiovascular Disease | DX: Z45.010 Encounter for checking and testing of cardiac pacemaker pulse generator [battery] (principal) | CPT/HCPCS: 93296 ==

== ENCOUNTER → 2023-08-05 09:43 | Outpatient (BNVA) | payer MEDICARE, SELFPAY | PROVIDERS: PCP Nurse Practitioner Family; Visit Provider Internal Medicine Cardiovascular Disease | DX: I25.118 Atherosclerotic heart disease of native coronary artery with other forms of angina pectoris (principal); E78.2 Mixed hyperlipidemia; I10 Essential (primary) hypertension; Z95.0 Presence of cardiac pacemaker | CPT/HCPCS: 36415; 80061; 80076; 99214 ==

== ENCOUNTER → 2024-02-16 10:13 | Outpatient (BNVA) | payer MEDICARE, SELFPAY | PROVIDERS: PCP Nurse Practitioner Family; Visit Provider Internal Medicine Cardiovascular Disease | DX: Z45.010 Encounter for checking and testing of cardiac pacemaker pulse generator [battery] (principal) | CPT/HCPCS: 93296 ==

== ENCOUNTER → 2024-03-01 12:36 | Outpatient (BNVA) | payer MEDICARE, SELFPAY | PROVIDERS: PCP Nurse Practitioner Family; Visit Provider Internal Medicine Cardiovascular Disease | DX: E78.2 Mixed hyperlipidemia (principal); I25.10 Atherosclerotic heart disease of native coronary artery without angina pectoris; Z95.0 Presence of cardiac pacemaker; I10 Essential (primary) hypertension | CPT/HCPCS: 36415; 80061; 99214 ==

== ENCOUNTER 2024-07-23 00:55 | Emergency (ER) | payer MEDICARE, SELFPAY ==
[2024-07-23 01:09] VITALS: BP 140/94; PULSE 79; RESP 18; TEMP 36.6; O2SAT 100; BMI 33.4
--- NOTE | 2024-07-23 01:09 | CTR_ITS ---
PROCEDURE INFORMATION: Exam: CT Abdomen And Pelvis Without Contrast Exam date and time: 07/23/2024 1:31 AM Age: 69 years old Clinical indication: Abdominal pain; Flank; Left lower quadrant (llq); Additional info: Flank pain TECHNIQUE: Imaging protocol: Computed tomography of the abdomen and pelvis without contrast. Radiation optimization: All CT scans at this facility use at least one of these dose optimization techniques: automated exposure control; mA and/or kV adjustment per patient size (includes targeted exams where dose is matched to clinical indication); or iterative reconstruction. COMPARISON: CT kidney stone [id number] 07/31/2022 2:06 AM RADIATION DOSE METRICS: Total DLP (mGy-cm): 877.45 FINDINGS: Lungs: Stable benign nodule in the left lower lobe (series 3, image 20). Liver: Unremarkable. No mass. Gallbladder and biliary ducts: Unremarkable. No calcified stones. No ductal dilation. Pancreas: Unremarkable. No ductal dilation. Spleen: Unremarkable. No mass. Adrenal glands: Unremarkable. No mass. Kidneys and ureters: Right renal cyst measuring 5.5 cm. Left renal stone x 0.5 cm with mild left caliectasis (series 5, image 75). Stomach and bowel: Colonic diverticulosis. No acute diverticulitis. No significant mucosal thickening. No bowel obstruction. Appendix: No evidence of appendicitis. Intraperitoneal space: No free air. No significant fluid collection. Vasculature: No abdominal aortic aneurysm. Lymph nodes: No enlarged lymph nodes. Urinary bladder: Minimal urinary bladder wall thickening, suspect to be secondary to chronic outlet obstruction from the enlarged prostate. Reproductive: Prostatomegaly, similar to prior. Bones/joints: No acute fracture. No suspicious lesion. Soft tissues: Fat containing umbilical hernia, stable. CT/CT kidney stone [id number] IMPRESSION: There is a 0.5 cm stone in the left kidney resulting in mild caliectasis. COMMENTS: Consistent with the [place] [employer]'s Incidental Findings Committee white paper (J Am Zoë Radiol 2018): Any incidental renal lesion less than 1 cm or classified as too small to characterize, or any incidental cystic renal lesion characterized as simple-appearing, is likely benign. No follow-up imaging is recommended for these lesions per consensus recommendations based on imaging criteria.
[2024-07-23 01:15] VITALS: BP 140/94; PULSE 70; O2SAT 98
[2024-07-23 01:27] LABS: Basophils % 0.3 %; Eosinophils # 0.2 10^3/uL (0.0-0.8); Eosinophils % 2.3 %; Hematocrit 44.6 % (37-53); Lymphocytes # 1.9 10^3/uL (0.8-4.8); Lymphocytes % 19.5 %; Mean Corpuscular HGB Conc 33.6 g/dL (30-55); Mean Corpuscular Hemoglobin 29.9 pg (27-33); Mean Corpuscular Volume 88.8 fl (82-101); Mean Platelet Volume 9.7 fL (7.4-10.4); Monocytes # 0.7 10^3/uL (0.2-0.9); Monocytes % 6.9 %; Neutrophils % 70.8 %; Nucleated Red Blood Cells % 0 %; Platelet Count 237 10^3/cmm (157-399); Red Blood Count 5.02 10^6/uL (3.85-5.65); Red Cell Distribution Width 12.6 % (12.1-15.1)
[2024-07-23] MEDS: ondansetron 2 mg/ML SDV 2 mL 4 MG IVP (01:28)
[2024-07-23] MEDS: ketorolac 30 mg/mL INJ IVP (01:29)
[2024-07-23 01:40] VITALS: BP 130/83; PULSE 68; O2SAT 96
[2024-07-23 01:44] LABS: Alanine Aminotransferase 29 U/L (0-41); Albumin Level 4.4 g/dL (3.5-5.2); Alkaline Phosphatase 95 U/L (40-130); Anion Gap 16.2 (5-19); Aspartate Amino Transferase 26 U/L (0-40); Blood Urea Nitrogen 22 mg/dL (8-23); Calcium 9.5 mg/dL (8.5-10.5); Carbon Dioxide 23 mmol/L (22-29); Chloride 105 mmol/L (98-107); Creatinine Clr Calc Pharmacy 61.4089; Glomerular Filtration Rate 54.7 mL/min (90-130); Glucose 126 mg/dL (65-115); Osmolality Calculated 295 mOsm/kg (285-295); Potassium 4.2 mmol/L (3.5-5.1); Sodium 140 mmol/L (136-145); Total Protein 7.4 g/dL (6.6-8.7)
[2024-07-23 02:15] LABS: Bilirubin Urine Negative (Negative); Blood Urine 2+ (Negative); Glucose Urine UA Negative (Normal); Ketones Urine Trace (Negative); Leukocyte Esterase Urine Negative (Negative); Nitrate Urine Negative (Negative); Protein Urine Trace (Negative); Specific Gravity, Urine 1.024 (1.005-1.030); Urine Appearance Clear (CLEAR); Urine Color Yellow (Yellow); pH Urine 5.5 (5-7)
[2024-07-23 02:20] LABS: Add Urine Microscopic? YES; Bacteria Urine None Seen /hpf; Squamous Epithelial Cell Urine 0-5 /hpf (0-5); WBC Urine 0-5 /hpf (0-5)
--- NOTE | 2024-07-23 02:25 | W.ED.ABDPA2 ---
HPI - Abdominal Pain General: Chief Complaint: Abdominal Pain Stated Complaint: Possible Kidney Stone Time Seen by Provider: 07/23/24 01:17 History of Present Illness: Patient presents to the ER with left-sided flank pain radiating to his lower abdomen. Patient believes he had a kidney stone. Patient has had kidney stones in the past. The last episode was about 2 years. He currently sees a urologist in [place]. Patient denies any fever chills nausea vomiting. Related Data Home Medications Medication Instructions Recorded Confirmed multivitamin 1 tab PO QAM 10/19/19 08/14/23 omega-3 acid ethyl esters 1 gram 1 cap PO DAILY 10/19/19 08/14/23 capsule cetirizine 10 mg tablet (Zyrtec) 10 mg PO DAILY PRN Allergy Symptoms 07/02/21 08/14/23 Previous Rx's Medication Instructions Recorded amlodipine 5 mg tablet 5 mg PO DAILY #90 tabs 01/02/24 atorvastatin 80 mg tablet (Lipitor) 80 mg PO DAILY #90 tabs 01/02/24 clopidogrel 75 mg tablet 75 mg PO DAILY #90 tabs 01/02/24 ezetimibe 10 mg tablet 10 mg PO DAILY #90 tabs 01/02/24 lisinopril 40 mg tablet 40 mg PO DAILY #90 tabs 01/02/24 ketorolac 10 mg tablet 10 mg PO Q6H PRN Kidney stone pain 07/23/24 #14 tabs ondansetron HCl 4 mg tablet 4 mg PO Q8H PRN nausea and 07/23/24 vomiting #14 tabs Allergies Allergy/AdvReac Type Severity Reaction Status Date / Time No Known Allergies Allergy Verified 08/14/23 09:29 Review of Systems General: Reports: 10 or more systems reviewed and unremarkable except in HPI and below PFSH ED PFSH: Medical History Urolithiasis Enlarged prostate Artificial cardiac pacemaker Elevated PSA Chronically elevated PSA with negative biopsy 2018 Range 4-10, benign feeling NATE Lower urinary tract symptoms (LUTS) History of skin cancer of unknown type Bradycardia Hypertension Coronary artery disease The most recent cardiac catheterization was in 2008. He was found to have a patent stent in the LAD with minimal in-stent stenosis. The stent in the PDA also was found to be patent. Moderate disease is noted in the bifurcation of the distal RCA and around the origin of the first obtuse marginal artery. The LV ejection fraction was 60%. The most recent myocardial bridge imaging was in 2012 Mixed hyperlipidemia Surgical History History of knee replacement, total LEFT Status post coronary artery stent placement Status post placement of cardiac pacemaker Status post vasectomy Family History Father , AT AGE 89-HEART FAILURE CAD (coronary artery disease) Mother Heart failure Family/Other Diabetes Cancer Lung disease Stroke Other Hypertension Denies family history of Clotting disorder Dementia Chronic kidney disease (CKD) Suicide Anesthesia complication Bleeding disorder Social History (Reviewed 07/23/24 @ 02: by Adolfo Russell DO) Smoking and tobacco/nicotine status: never used tobacco/nicotine Alcohol intake: never Substance/Drug Use: never Marital status: Current occupational status: retired Physical Exam Const: COMMON NORMALS: no acute distress, average body habitus, patient oriented x3, no limitations, healthy appearing, alert and well nourished HENMT: COMMON NORMALS: normocephalic, atraumatic, hearing grossly normal bilaterally, external ears normal, Normal external nose present and moist oral mucous membranes HEAD & SCALP: normocephalic and atraumatic NOSE: Normal external nose present EXTERNAL EAR: Yes external ears normal Neck/C-Spine: COMMON NORMALS: no JVD Chest: COMMONS NORMALS: normal inspection of the chest and normal palpation of entire chest wall Resp: COMMON NORMALS: normal respiratory effort, No retractions, No use of accessory muscles and clear to auscultation bilaterally AUSCULTATION: clear to auscultation bilaterally Cardio: COMMON NORMALS: no JVD, regular rate, regular rhythm, S1 normal heart sound present, S2 normal heart sound present, No gallops present (Cardio), No clicks present (Cardio), No murmurs present (Cardio) and No rub (Cardio) RATE: regular rate RHYTHM: regular rhythm HEART SOUNDS: S1 normal heart sound present and S2 normal heart sound present GI: COMMON NORMALS: Normal to inspection, nondistended, normoactive bowel sounds present, Soft to palpation, non-tender, No hepatosplenomegaly present and no masses PALPATION: Yes Soft to palpation and Yes No hepatosplenomegaly present Neuro: COMMON NORMALS: patient oriented x3 SENSORIUM/ORIENTATION: Yes alert Course Vital Signs: Vital signs: Vital Signs Temperature 98 F 07/23/24 01:09 Pulse Rate 60 07/23/24 02:41 Respiratory Rate 18 07/23/24 01:09 Blood Pressure 105/63 07/23/24 02:41 Pulse Oximetry 90 07/23/24 02:41 Oxygen Flow Rate 2 07/23/24 02:41 MDM - Abdominal Pain Medical Decision Making Patient presents with left flank pain that radiates down to his groin, he was given 4 mg Zofran, 30 mg Toradol which essentially made the pain go away, CT scan of the abdomen showed a 5 mm stone in the left kidney otherwise negative, patient be discharged home with prescriptions for Toradol and Zofran. Patient follow-up with his urologist and/or PCP within the next 7 to 10 days. Medical Records I reviewed the patient's medical records. Lab Data I reviewed the patient's lab results. 07/23/24 01:22 07/23/24 01:22 Labs/Radiology: Radiology Impressions Abdomen/Pelvis CT 07/23/24 01:09 IMPRESSION: There is a 0.5 cm stone in the left kidney resulting in mild caliectasis. COMMENTS: Consistent with the [employer]'s Incidental Findings Committee white paper (J Am Zoë Radiol 2018): Any incidental renal lesion less than 1 cm or classified as too small to characterize, or any incidental cystic renal lesion characterized as simple-appearing, is likely benign. No follow-up imaging is recommended for these lesions per consensus recommendations based on imaging criteria. Laboratory Results WBC 9.60 10^3/uL (3.29-11.43) 07/23/24 01:22 RBC 5.02 10^6/uL (3.85-5.65) 07/23/24 01:22 Hgb 15.00 g/dL (11.27-16.99) 07/23/24 01:22 Hct 44.6 % (37-53) 07/23/24 01:22 MCV 88.8 fl (82-101) 07/23/24 01:22 MCH 29.9 pg (27-33) 07/23/24 01:22 MCHC 33.6 g/dL (30-55) 07/23/24 01:22 RDW 12.6 % (12.1-15.1) 07/23/24 01:22 Plt Count 237 10^3/cmm (157-399) 07/23/24 01:22 MPV 9.7 fL (7.4-10.4) 07/23/24 01:22 Neut % (Auto) 70.8 % 07/23/24 01:22 Lymph % (Auto) 19.5 % 07/23/24 01:22 [place] % (Auto) 6.9 % 07/23/24 01:22 Eos % (Auto) 2.3 % 07/23/24 01:22 Baso % (Auto) 0.3 % 07/23/24 01:22 Neut # (Auto) 6.80 10^3/uL (1.8-7.7) 07/23/24 01:22 Lymph # (Auto) 1.9 10^3/uL (0.8-4.8) 07/23/24 01:22 [place] # (Auto) 0.7 10^3/uL (0.2-0.9) 07/23/24 01:22 Eos # (Auto) 0.2 10^3/uL (0.0-0.8) 07/23/24 01:22 Baso # (Auto) 0.0 10^3/uL (0.0-0.1) 07/23/24 01:22 Nucleated RBC % (auto) 0 % 07/23/24 01:22 Nucleated RBCs # 0.0 /100WBC 07/23/24 01:22 Sodium 140 mmol/L (136-145) 07/23/24 01:22 Potassium 4.2 mmol/L (3.5-5.1) 07/23/24 01:22 Chloride 105 mmol/L (98-107) 07/23/24 01:22 Carbon Dioxide 23 mmol/L (22-29) 07/23/24 01:22 Anion Gap 16.2 (5-19) 07/23/24 01:22 BUN 22 mg/dL (8-23) 07/23/24 01:22 Creatinine 1.3 mg/dL (0.7-1.2) H 07/23/24 01:22 GFR Calculation 54.7 mL/min (90-130) L 07/23/24 01:22 Glucose 126 mg/dL (65-115) H 07/23/24 01:22 Calculated Osmolality 295 mOsm/kg (285-295) 07/23/24 01:22 Calcium 9.5 mg/dL (8.5-10.5) 07/23/24 01:22 Total Bilirubin 1.0 mg/dL (0.15-1.2) 07/23/24 01:22 AST 26 U/L (0-40) 07/23/24 01:22 ALT 29 U/L (0-41) 07/23/24 01:22 Alkaline Phosphatase 95 U/L (40-130) 07/23/24 01:22 Total Protein 7.4 g/dL (6.6-8.7) 07/23/24 01:22 Albumin 4.4 g/dL (3.5-5.2) 07/23/24 01:22 Globulin 3.0 g/dL (1.3-4.6) 07/23/24 01:22 Urine Color Yellow (Yellow) 07/23/24 02:08 Urine Appearance Clear (CLEAR) 07/23/24 02:08 Urine pH 5.5 (5-7) 07/23/24 02:08 Ur Specific [place] 1.024 (1.005-1.030) 07/23/24 02:08 Urine Protein Trace (Negative) A 07/23/24 02:08 Urine Glucose (UA) Negative (Normal) 07/23/24 02:08 Urine Ketones Trace (Negative) 07/23/24 02:08 Urine Blood 2+ (Negative) A 07/23/24 02:08 Urine Nitrate Negative (Negative) 07/23/24 02:08 Urine Bilirubin Negative (Negative) 07/23/24 02:08 Urine Urobilinogen 1.0 mg/dL (Negative) 07/23/24 02:08 Ur Leukocyte Esterase Negative (Negative) 07/23/24 02:08 Urine RBC 11-20 /hpf (0-2) H 07/23/24 02:08 Urine WBC 0-5 /hpf (0-5) 07/23/24 02:08 Ur Squamous Epith Cells 0-5 /hpf (0-5) 07/23/24 02:08 Amorphous Sediment Not Reportable 07/23/24 02:08 Urine Bacteria None seen /hpf (NONE) 07/23/24 02:08 Hyaline Casts 0.40 /lpf 07/23/24 02:08 All radiology interpretation(s) finalized by discharge Discharge Plan Discharge Patient Disposition: Home Clinical Impression: Calculus of kidney Condition: Stable Prescriptions: New ondansetron HCl 4 mg tablet 4 mg PO Q8H PRN (Reason: nausea and vomiting) Qty: 14 0RF ketorolac 10 mg tablet 10 mg PO Q6H PRN (Reason: Kidney stone pain) Qty: 14 0RF No Action omega-3 acid ethyl esters 1 gram capsule 1 cap PO DAILY multivitamin Tablet 1 tab PO QAM cetirizine [Zyrtec] 10 mg tablet 10 mg PO DAILY PRN (Reason: Allergy Symptoms) lisinopril 40 mg tablet 40 mg PO DAILY Qty: 90 3RF ezetimibe 10 mg tablet 10 mg PO DAILY Qty: 90 3RF clopidogrel 75 mg tablet 75 mg PO DAILY Qty: 90 3RF atorvastatin [Lipitor] 80 mg tablet 80 mg PO DAILY Qty: 90 3RF amlodipine 5 mg tablet 5 mg PO DAILY Qty: 90 3RF Discharge Orders: Discharge ED (Routine); Ordered 07/23/24 Ordered By: Adolfo Russell Referrals: An Leblanc NP [Primary Care Provider] - 1 week Patient Instructions: Kidney Stones (ED) Activity Restrictions/Additional Instructions: Thank you for choosing [facility] for your healthcare needs today. Please realize that you were seen in the emergency department and that we are providing you with an emergency medical screening exam and this may not be a complete and all exclusive of all testing and/or medical workup we may need to determine your element or severity of your illness. It is very important that you follow-up as instructed with your primary care provider or specialist for the additional evaluation and to discuss your medical treatment plan. You may return to the emergency department should you have concerns or if your condition changes or worsens in any way. Coding Level of Care Code ED Sanforizing Machine Operator for Darryl Watts
[2024-07-23 02:34] LABS: Add Urine Culture? Yes
[2024-07-23 02:41] VITALS: BP 105/63; PULSE 60; O2SAT 90
[2024-07-23 03:31] VITALS: BP 113/79; PULSE 60; O2SAT 92
== END 2024-07-23 03:30 | disposition home or self-care (01) ==
PROVIDERS: Emergency Provider Emergency Medicine; PCP Nurse Practitioner Family
DX: N20.0 Calculus of kidney (principal); Z79.02 Long term (current) use of antithrombotics/antiplatelets; Z95.0 Presence of cardiac pacemaker; I10 Essential (primary) hypertension; I25.10 Atherosclerotic heart disease of native coronary artery without angina pectoris; E78.2 Mixed hyperlipidemia
CPT/HCPCS: 74176; 80053; 81001; 85025; 87086; 96374; 96375; 99285; J1885; J2405

== ENCOUNTER → 2024-08-11 10:31 | Outpatient (BNVA) | payer MEDICARE, SELFPAY | PROVIDERS: PCP Nurse Practitioner Family; Visit Provider Internal Medicine Cardiovascular Disease | DX: Z45.010 Encounter for checking and testing of cardiac pacemaker pulse generator [battery] (principal) | CPT/HCPCS: 93296 ==

== ENCOUNTER → 2024-09-13 10:14 | Outpatient (BNVA) | payer MEDICARE, SELFPAY | PROVIDERS: PCP Nurse Practitioner Family; Visit Provider Internal Medicine Cardiovascular Disease | DX: I25.10 Atherosclerotic heart disease of native coronary artery without angina pectoris (principal); E78.2 Mixed hyperlipidemia; I10 Essential (primary) hypertension; Z95.0 Presence of cardiac pacemaker | CPT/HCPCS: 99214 ==

== ENCOUNTER → 2025-02-09 09:19 | Outpatient (BNVA) | payer MEDICARE, SELFPAY | PROVIDERS: PCP Nurse Practitioner Family; Visit Provider Internal Medicine Cardiovascular Disease | DX: Z45.018 Encounter for adjustment and management of other part of cardiac pacemaker (principal) | CPT/HCPCS: 93296 ==

== ENCOUNTER → 2025-03-18 08:46 | Outpatient (BNVA) | payer MEDICARE, SELFPAY | PROVIDERS: PCP Nurse Practitioner Family; Visit Provider Nurse Practitioner Family | DX: I25.10 Atherosclerotic heart disease of native coronary artery without angina pectoris (principal); E78.2 Mixed hyperlipidemia; I10 Essential (primary) hypertension; Z79.02 Long term (current) use of antithrombotics/antiplatelets; Z95.5 Presence of coronary angioplasty implant and graft; Z95.0 Presence of cardiac pacemaker | CPT/HCPCS: 99213 ==

== ENCOUNTER → 2025-05-11 11:12 | Outpatient (BNVA) | payer MEDICARE, SELFPAY | PROVIDERS: PCP Nurse Practitioner Family; Visit Provider Internal Medicine Cardiovascular Disease | DX: Z45.018 Encounter for adjustment and management of other part of cardiac pacemaker (principal) | CPT/HCPCS: 93296 ==